=== PATIENT | male | born 2000 | race Caucasian/White ===

== ENCOUNTER 2024-10-24 12:49 | Emergency (ER) | payer SELFPAY ==
[~2024-10-24] VITALS: Ht 170.2 cm; Wt 75.0 kg
[2024-10-24 12:53] VITALS: O2SAT 99
[2024-10-24] MEDS: LEVETIRACETAM 500MG TABLET PO ONE (13:18)
[2024-10-24 14:00] LABS: BASOPHILS % 0.5 % (0.0-2.0); EOSINOPHILS % 5.4 % (0.0-5.0); HEMATOCRIT. 45.2 % (42.0-52.0); HEMOGLOBIN. 15.1 g/dL (14.0-18.0); LYMPHOCYTES % 27.4 % (20.0-50.0); MEAN PLATELET VOLUME 10.0 fl (7.4-10.4); MONOCYTES % 6.0 % (2.0-8.0); NEUTROPHILS % 60.7 % (40.0-76.0); PLATELET 229 x1000/uL (130-400); RED BLOOD CELL COUNT 5.16 mill/uL (4.7-6.1); RED CELL DISTRIBUTION WIDTH 12.9 % (11.6-14.6)
[2024-10-24 14:08] LABS: CREATININE 0.8 mg/dL (0.6-1.3); UREA NITROGEN BLOOD 14 mg/dL (9-23)
[2024-10-24] MEDS ORDERED: KEPP500 MT (14:39)
[2024-10-24 14:51] VITALS: BP 131/78; PULSE 97; RESP 17; TEMP 36.7; O2SAT 99
== END 2024-10-24 15:08 | disposition home or self-care (01) ==
LOC: ER 13:02
DX: R56.9 Unspecified convulsions (principal)
CPT/HCPCS: 36415; 80048; 85025; 99283